=== PATIENT | female | born 1960 | race Caucasian/White ===

== ENCOUNTER 2017-03-15 06:27 | Day surgery (SDC) | payer BC, OTHER ==
[~2017-03-15] VITALS: Ht 162.6 cm; Wt 72.9 kg
--- OUTSIDE RECORDS SUMMARY | 2017-03-15 06:31 | XMS REPORT | Referral Summary ---
Author Author [facility], [facility] Organization [facility] Address Unknown Phone Unavailable Care Team Providers Care Scratcher Name Role Phone Steffany Philip Primary Care Physician [phone] Encounter VC Date(s): 12/06/16 - 12/06/16 [facility], [address] [place] [address]- Discharge Diagnosis: Obesity Discharge Diagnosis: Tubular adenoma of colon Discharge Disposition: 01-Home or Self Care Attending Physician: Vikki Philip DO Admitting Physician: Vikki Philip DO Vital Signs Most recent to 1 oldest [Reference Range]: Temperature Tympanic 37.0 degC [36.6-38.1 degC] (12/06/16 1:59 PM) Peripheral Pulse 95 bpm Rate [60-100 bpm] (12/06/16 1:59 PM) Blood Pressure 122/80 mmHg [90-140/60-90 mmHg] (12/06/16 1:59 PM) SpO2 96 % (12/06/16 1:59 PM) Problem List Condition Effective Dates Status Health Status Informant Concussion(Confirmed 1975 Active ) Obesity(Confirmed) Active patient Psoriasis(Confirmed) Active Sinus Active infections(Confirmed ) Chickenpox(Confirmed Active ) Allergies, Adverse Reactions, Alerts Substance Reaction Severity Status aspirin Unknown Active Medications Vitamin B12 0 Refill(s) Start Date: 12/06/16 Status: Ordered Vitamin D3 1000 intl units oral tablet 1,000 Intl_Units 1 tabs, Oral, Daily, # 30 tabs, 0 Refill(s) Start Date: 12/06/16 Status: Ordered Results No data available for this section Immunizations Given and Recorded Vaccine Date Status Refusal Reason influenza virus vaccine, live 09/13/12 Given Procedures Procedure Date Related Diagnosis Body Site Colonoscopy with polypectomy1 02/21/10 Tonsillectomy 1960 Adenoidectomy 1959 1Polypectomy showing tubular adenoma. Plan repeat colonoscopy in 5 yars (2014) Letter set up. Social History Social History Type Response Smoking Status Former smoker Assessment and Plan Extracted from: Title: Office Visit Note Author: Vikki Philip DO Date: 12/06/16 Assessment/Plan Leg mass Recommend MRI at this time for further evaluation with further recommendations after results. Ordered: Office Visit Level 4 Est 76720 Obesity FLP, CMP for blood sugar screening, and thyroid screening today with further recommendations after results. Ordered: Office Visit Level 4 Est 66183 Tubular adenoma of colon Fast track colonoscopy paperwork was provided to patient today. Ordered: Office Visit Level 4 Est 02791 Recommend patient come back in at her convenience for well woman exam. Extracted from: Title: MRI Author: aLrissa Evans LPN Date: 12/06/16 Pt shceduled for MRI at [facility] Dec 08 at 8:00 with 7:30 check in. Pt notified. Info and order faxed to [facility].
--- OUTSIDE RECORDS SUMMARY | 2017-03-15 06:31 | XMS REPORT | Continuity of Care Document ---
Author Author [facility] Organization [facility] Address Unknown Phone Unavailable Care Team Providers Care Rn Iv Therapy Name Role Phone Vikki Philip Primary Care Physician [phone] Source Comments Some departments are not documenting in the electronic medical record. If you do not see the information that you expected, contact Release of Information in the Health Information Management department at [phone] for further assistance in locating additional records.[facility] Active Allergies and Adverse Reactions Allergen Noted Date Severity Reactions Comments Aspirin 12/18/2016 Medium RASH Current Medications Prescription Sig. Disp. Refills Start End Date Status Date cyanocobalamin(+) Take 100 mcg by mouth Active (VITAMIN B-12) 100 mcg daily. tablet FEXOFENADINE HCL (VICKY Take 1 Tab by mouth as Active PO) Needed. SALICYLIC ACID (ALCOHOL & Apply topically to Active PG) TP affected area. oxyCODONE/acetaminophen Take 1 Tab by mouth every 30 Tab 0 12/19/19 Active (PERCOCET) 5/325 mg 6 hours as needed for 17 tablet Pain cephalexin (KEFLEX) 500 Take 1 Cap by mouth four 8 Cap 0 12/19/19 Active mg capsule times daily. 17 Active Problems Not on file Most Recent Encounters Date Type Specialty Providers Description 03/08/2017 Telephone Orthopedic Surgery Gabriella Nicole MD Follow -up Phone Call 01/09/2017 Telephone Orthopedic Surgery Gabriella Nicole MD New Treatment Follow Up 01/05/2017 Ancillary Radiology Outpatient, Radiologist Diagnosis unknown Orders (Primary Dx) 01/05/2017 Documentation Orthopedic Gabriella Gupta MD 01/01/2017 Hospital Radiology Encounter 12/28/2016 Documentation Orthopedic Gabriella Gupta MD 12/26/2016 Documentation Orthopedic Gabriella Gupta MD 12/25/2016 Telephone Orthopedic Surgery Gabriella Nicole MD Results 12/25/2016 Telephone Orthopedic Surgery Gabriella Nicole MD Results 12/19/2016 Hospital Gabriella Nicole MD Knee mass, left Encounter 12/19/2016 Surgery Gabriella Nicole MD OPEN BIOPSY LEFT THIGH MASS 12/18/2016 Office Visit Orthopedic Surgery Gabriella Nicole MD Mass of left thigh (Primary Dx) 12/18/2016 Anesthesia Arabella Raphael, LILLY Event 12/18/2016 Prep for Case Orthopedic Surgery Gabriella Nicole MD 12/18/2016 Ancillary Radiology Outpatient, Radiologist Diagnosis unknown Orders (Primary Dx) Social History Tobacco Use Types Packs/Day Years Used Date Former Smoker Quit: 11/26/1978 Smokeless Tobacco: Never Used Alcohol Use Drinks/Week oz/Week Comments No Last Filed Vital Signs Vital Sign Reading Time Taken Blood Pressure 128/68 12/19/2016 10:00 AM ORGAN RECOVERY COORDINATOR Pulse 67 12/19/2016 10:00 AM ORGAN RECOVERY COORDINATOR Temperature 36.3 C (97.3 F) 12/19/2016 10:00 AM ORGAN RECOVERY COORDINATOR Respiratory Rate 18 12/18/2016 8:19 AM ORGAN RECOVERY COORDINATOR Height 1.626 m (5' 4") 12/19/2016 6:40 AM ORGAN RECOVERY COORDINATOR Weight 78.7 kg (173 lb 8 oz) 12/19/2016 6:40 AM ORGAN RECOVERY COORDINATOR Body Mass Index 29.77 12/19/2016 6:40 AM ORGAN RECOVERY COORDINATOR Oxygen Saturation 99% 12/19/2016 10:00 AM ORGAN RECOVERY COORDINATOR Plan of Care Health Maintenance Due Date Last Done Comments Hepatitis C Screening 1958 Physical (Comprehensive) 1965 Exam Pertussis Vaccine 1969 Tetanus Vaccine 1975 Cervical Cancer Screening 1979 Breast Cancer Screening 1998 Colorectal Cancer 2008 Screening Influenza Vaccine 07/27/2017 Procedures from Last 3 Months Procedure Name Priority Date/Time Associated Diagnosis Comments TELEMETRY STRIPS-SCAN 12/20/2016 Results for this 12:38 PM ORGAN RECOVERY COORDINATOR procedure are in the results section. OPEN BIOPSY LEFT THIGH 12/19/2016 Knee mass, left MASS 8:00 AM ORGAN RECOVERY COORDINATOR Results from Last 3 Months * PATHOLOGY REPORTS FROM OUTSIDE SCAN (03/14/2017 7:45 AM) Narrative Ordered by an unspecified provider. * PATHOLOGY INTEROPERATIVE REPORT SCAN (01/03/2017 1:51 PM) Narrative Ordered by an unspecified provider. * CYTOGENETICS SCAN (01/02/2017 2:33 PM) Only the most recent of 2 results within the time period is included. Narrative Ordered by an unspecified provider. * CT CHEST EXTERNAL IMAGING (01/01/2017) Narrative This order has been auto finalized and does not contain a result. * TELEMETRY STRIPS-SCAN (12/20/2016 12:38 PM) Narrative Ordered by an unspecified provider. * CHROMOSOMES SOLID TUMOR (12/19/2016 10:00 AM) Component Value Range Chromosomes Solid Tumor SEE PYROTECHNICIAN FOR REPORT * SURGICAL PATHOLOGY (12/19/2016 8:24 AM) Component Value Range PATHOLOGY REPORT [facility] [email or web address] Yolanda Donaldson MD, PhD, Director of Anatomic Pathology Department of Pathology and Laboratory Medicine [address] [place] [id number] Surgical Pathology Office: [phone] SURGICAL PATHOLOGY REPORT NAME: MATILDE RUTH SURG PATH #: [id number] MR #: [id number] SPECIMEN CLASS: SR BILLING #: [id number] ALT ID #: LOCATION: [facility] DATE OF PROCEDURE: 12/19/2016 AGE: 56 SEX: F DATE RECEIVED: 12/19/2016 : 1960 TIME RECEIVED: 08:24 PHYSICIAN: GABRIELLA NICOLE DATE OF REPORT: 12/22/2016 COPY TO: DATE OF PRINTIN12/22/2016 ################################################## ###################### Final Diagnosis: A. Soft tissue, left thigh mass, open biopsy: Undifferentiated pleomorphic sarcoma with myxoid changes, high grade. See comment. Comment: SOFT TISSUE: Biopsy Select a single response unless otherwise indicated. Procedure Open biopsy Tumor Site Left thigh Tumor Size Cannot be determined Macroscopic Extent of Tumor (select all that apply) Deep: Fascial Histologic Type (World Health Organization [WHO] classification ofsoft tissue tumors) Specify: Undifferentiated pleomorphic sarcoma tomorrow S Mitotic Rate Specify: 15/10 high-power irwin (HPF) (1 HPF x 400=0.1734 mm2; X40 objective; most proliferative area) Necrosis Not identified Histologic Grade ([place] [facility] [FNCLCC]) Grade 3 Margins (for excisional biopsy only) Cannot be assessed Lymph-Vascular Invasion Not identified Additional Pathologic Findings Specify: Ancillary Studies (required only if applicable) Immunohistochemistry Specify: the tumor cells are positive for CD34, focally positive for desmin and negative for myers cytokeratin, S-100, Beta-catenin, myers melanoma marker, and SMA. Ki-67 is about 30-40% confirming the high proliferative activity of the tumor Not performed Cytogenetics Specify: submitted Molecular Pathology Not performed Prebiopsy Treatment (select all that apply) No therapy Treatment Effect N/A Pursuant to the [employer] Program at the [facility] Pathology Department, selected slides from this case have been concurrently reviewed by the following pathologist: Dr. Melissa who agrees with the final diagnosis. Attestation: By this signature, I attest that I have personally formulated the final interpretation expressed in this report and that the above diagnosis is based upon my examination of the slides and/or other material indicated in this report. +++Electronically Signed Out By+++ ksw/12/19/2016 Interpreted by: Cherelle Mckenzie MD PhD, Attending Physician 12/22/2016 ################################################## ###################### Material Received: A: left thigh mass History: 56-year-old female with a history of thigh mass. Gross Description: A. Received fresh labeled with the patient's name and "left thigh mass" is a 1.0 x 1.0 x 0.6 cm aggregate of harvey-pink tissue fragments. Sole Blacker sections are submitted in cassette A1FS for frozen and permanent sections. Sole Blacker sections are submitted for cytogenetics. The residual tissue is submitted entirely in cassettes A2 and A3. (brm) ksw/12/19/2016 Intraoperative Consultation: A1FS, lesional tissue, "left thigh mass", biopsy: High-grade sarcoma Cherelle Mckenzie MD PhD, Attending Physician If immunohistochemical stains and/or in situ hybridization are cited in this report, the performance characteristics were determined by the Department of Pathology and Laboratory Medicine of the [facility] ([employer]) in compliance with CLIA'88 regulations. Some of these tests rely on the use of "analyte specific reagents" and are subject to specific labeling requirements by the FDA. Known positive and negative control tissues demonstrate appropriate staining. This testing was developed by the Department of Pathology and Laboratory Medicine of the [facility]. It has not been cleared or approved by the FDA. The FDA has determined that such clearance or approval is not necessary. * CHROMOSOMES FISH DNA PROBE (12/19/2016 8:00 AM) Component Value Range Chromosomes Fish DNA SEE PYROTECHNICIAN FOR REPORT Probe
[2017-03-15 06:37] VITALS: BP 110/64; PULSE 84; RESP 13; TEMP 98.2; O2SAT 96; Ht 162.6 cm; Wt 72.9 kg
[2017-03-15] MEDS ORDERED: PROPOFOL 500mg 50 ML IV ONE ×2 (06:51→07:15)
[2017-03-15] MEDS ORDERED: LR 1,000 ML IV SCH (07:00)
[2017-03-15] MEDS ORDERED: LIDOCAINE 1% (10mg/ml) 2ml SDV INJ ONE (07:00)
[2017-03-15] MEDS ORDERED: LIDOCAINE (2%) 100 MG/5 ML PF SYRINGE IV ONE (07:15)
--- NOTE | 2017-03-15 07:33 | ANESPREOP ---
Anesthesia Record Date and Time DATE: 03/15/17 TIME: 07:32 Pre-Op Diagnosis personal history Proposed Surgical Procedure COLONOSCOPY NPO since: 2199 Allergies: Coded Allergies: aspirin (Verified Allergy, Unknown, 03/15/17) Ht/Wt/BMI Height: 5 ' 4.00 " Weight: 72.900 kg BMI: 27.6 kg/m2 Vital Signs Date Time Temp Pulse Resp B/P Pulse Ox O2 Delivery O2 Flow Rate FiO2 03/15/17 06:37 98.2 84 13 110/64 96 Room Air Medications Inpatient Medications Current Medications Medications (Trade) Dose Ordered Sig/Mayco Start Time Stop Time Status Last Admin Dose Admin Lactated Ringer's (Lactated Ringers) 1,000 ml @ 30 mls/hr Q24H 03/15/17 07:00 03/15/17 06:56 30 MLS/HR No Active Prescriptions or Reported Meds Currently on Beta Chago: No Medical/Surgical History Anesthesia PMH: Reports: Anesthesia Reactions (NO AIRWAY ISSUES), Cancer (LEG- SARCOMA), Denies: *Diabetes, Arthritis, Clotting Problems, Glaucoma, Malignant Hyperthermia, Sleep Apnea, Thyroid Disease Smoking Status: Never smoker Has pt. smoked today?: No Use Chewing Tobacco?: No Second Hand Exposure: No Substance Use Type: does not use Alcohol Intake: none HX of Last Menstrual Period: AGE 43 Past Surgical History Orthopedic Surgeries: Abdominal Surgeries: Genitourinary Surgeries: Cardiac Surgeries: Endocrine Surgeries: Reproductive Surgeries: Neurological Surgeries: Ear Surgeries: Nose Surgeries: Throat Surgeries: Yes - TONSILLECTOMY 1960 Other Surgeries: Yes - COLONOSCOPY Anesthesia Adverse Reactions: FOUND none Pertinent Findings EKG Rhythm: Sinus Rhythm Physical Exam Respiratory: Lungs clear Cardiovascular: FOUND Regular rate, rhythm, FOUND No murmur Airway Assessment Mallampati Score: I TMD: 3 Fingerbreadths Neck Extension: Good Teeth: Chipped Teeth/Crowns ASA: 2 Plan Anesthesia Plan: TIVA Discussion Discussed risks/options/alternatives of anesthesia and questions answered. Patient consents. Nursing pain assessment noted. Attestation Statement Prior to the delivery of any anesthetic medication, I examined the patient, developed the plan, obtained the patient's consent and discussed the risk and benefits of the procedure with the patient/guardian. MACHO RUTLEDGE CRNA Mar 15, 2017 07:33
[2017-03-15 08:53] VITALS: BP 102/59; PULSE 72; RESP 16; TEMP 97.5; O2SAT 100
[2017-03-15 09:08] VITALS: BP 106/63; PULSE 72; RESP 16; TEMP 97.5; O2SAT 95
--- NOTE | 2017-03-15 09:11 | ANESPO ---
Post-Op Note Date 03/15/17 Time: 09:11 Status Pt Participated in Evaluation: Pt participated in person Vital Signs Date Time Temp Pulse Resp B/P Pulse Ox O2 Delivery O2 Flow Rate FiO2 03/15/17 09:08 97.5 72 16 106/63 95 Room Air 03/15/17 08:53 6.00 Respiratory Function: Airway patent, Regular respirations Cardiovascular Function: Regular pulse Mental Status: Alert/oriented Pain Level Intensity: 0 Hydration: Taking po fluids Complications during Recovery None apparent Follow-Up Instructions Instructions Per Surgeon ZAIDA SWAN CRNA Mar 15, 2017 09:11
[2017-03-15 09:23] VITALS: BP 103/60; PULSE 60; RESP 16; O2SAT 98
--- NOTE | 2017-03-15 11:50 | OPNOTEF ---
DATE OF PROCEDURE 03/15/2017 SURGEON Slava Abarca MD PREOPERATIVE DIAGNOSIS Personal history of adenomatous colon polyps. POSTOPERATIVE DIAGNOSIS Personal history of adenomatous colon polyps, normal colonoscopy. PROCEDURE Colonoscopy. ANESTHESIA TIVA. BRIEF HISTORY/INDICATIONS Mrs. George is a 56-year-old female who about six years ago underwent a colonoscopy and was found to have an adenomatous colon polyp at that time. The patient presents today to undergo a followup colonoscopy. For completeness, please refer to notes included in the patient's chart. FINDINGS Upon colonoscopy, there was no evidence for angiodysplastic lesions, polyps, diverticula or sophia malignancies. DESCRIPTION OF PROCEDURE After informed consent was obtained, the patient was brought to the endoscopy suite and placed on the table in left lateral decubitus position. The patient subsequently underwent total intravenous anesthesia by the nurse cutter operator asbestos shingle per my request. A formal timeout was then performed. Next, a digital rectal examination was performed. Normal sphincter tone. No rectal masses were appreciated. An Olympus colonoscope was inserted in the anus and advanced with the lumen of the colon under direct visualization at all times until the cecum was ascertained. Triangulation of the taenia coli, ileocecal valve and appendiceal lumen were all visualized. The scope was then slowly withdrawn, again while maintaining visualization of the lumen at all times. As stated above, the entire colon was without evidence for angiodysplastic lesions, polyps, diverticula or sophia malignancies. The scope continued to be withdrawn until it was brought forth back into the rectal vault. A J-maneuver was then performed. No worrisome perianal pathology was noted. The scope was allowed to straighten and was withdrawn through the anal verge. The patient tolerated the procedure without difficulty and was sent back to the preop area in stable condition. Secondary to the absence of findings upon this colonoscopy and the fact the patient does have a prior history for adenomatous colon polyps, I would still recommend that she undergo a repeat colonoscopy at about a five-year interval. If she can demonstrate that she has not formed an adenomatous colon polyp over a 10-year period of time, will then return the patient back to the general guidelines at that time. ANTOINE
== END 2017-03-15 09:27 | disposition home or self-care (01) ==
LOC: SCU 06:27
PROVIDERS: ATTEND Surgery
DX: Z12.11 Encounter for screening for malignant neoplasm of colon (principal); Z86.010 Personal history of colon polyps; E66.9 Obesity, unspecified; Z68.27 Body mass index [BMI] 27.0-27.9, adult; Z79.899 Other long term (current) drug therapy
CPT/HCPCS: 45378; J2704; J7120

== ENCOUNTER 2017-04-02 05:57 | Day surgery (SDC) | payer BC, OTHER ==
[~2017-04-02] VITALS: Ht 160 cm; Wt 72.4 kg
[~2017-04-02 05:57] MED LIST: ACET-2723 PO; CHOL100018 PO; CYAN250010 PO; FEXO180T94 PO; NAPR220T61 PO
--- OUTSIDE RECORDS SUMMARY | 2017-04-02 06:01 | XMS REPORT | Continuity of Care Document ---
Author Author [facility] Organization [facility] Address Unknown Phone Unavailable Support Name Relationship Address Phone KAYLEE KAUR FACS, MD Caregiver [address] [place] [address] [place] [address] Unavailable GAVIN PETERS DO Caregiver Unknown Unavailable PELON RUTH Next Of Kin [address] [place] [address] Insurance Providers Guarantor Matilde Ruth Address [address] [place] [address] CP Email [facility] Policy Number [id number] Subscriber's Name Matilde Ruth Relationship 18 Self Group Number [id number] Effective Date 14 [facility] Policy Number [id number] Subscriber's Name ArielPelon Barber Relationship 01 Spouse Group Number [id number] Effective Date 14 Advance Directives Directive Response Recorded Date/Time Dr Esquivel Resuscitation Status Full Code 03/14/17 12:20pm Resuscitation Documents on File No 03/15/17 6:46am DPOA for Healthcare Only No 03/15/17 6:46am Living Will No 03/15/17 6:46am Problems No problem information available. Medications No known medications. Social History Social History Problem Response Recorded Date/Time Onset Date Status Reason for Hospitalization colonoscopy 03/15/2017 9:07am Not Applicable Not Applicable Chewing Tobacco Status No 03/15/2017 6:50am Not Applicable Not Applicable Hx Substance Use No 03/14/2017 9:58am Not Applicable Not Applicable Hx Alcohol Use Y SOCIALLY 03/15/2017 6:50am Not Applicable Not Applicable Has the pt used tobacco in the last 12 months No 03/15/2017 6:50am Not Applicable Not Applicable Query Response Start Date Stop Date Smoking Status Never smoker Hospital Discharge Instructions Instructions: Care Instructions: I was in the hospital because (patient own words): COLONOSCOPY Discharge Diet: As Tolerated Discharge Activity: Do NOT drive today Follow Up Appointments: Follow up with Dr. Kaur as needed. Pending Lab / Results: No Pending Lab Patient Instructions: If biopsies performed during endoscopy, results/recommendations will be mailed in about 2-3 weeks. Expected Signs/Symptoms: None Notify Physician If: Call physician if temperature is GREATER than 101.5, severe abdominal pain or severe rectal bleeding. During Business Hours:: Call [phone] After Business Hours:: Call [phone] ([facility]) Pain Management/Treatment: Call Dr. Kaur if increasing abdominal pain Wound/Incision Care: N/A Condition at time of discharge: Good Plan of Care Discharge Date 03/15/17 9:27am Prescriptions See Medication Section Functional Status Query Response Date Recorded Ability to complete ADL's impeded by No change March 15, 2017 6:46am Allergies, Adverse Reactions, Alerts Allergen Type Severity Reaction Status Last Updated Aspirin Allergy Unknown Active 03/15/17 Immunizations Query Response on File Recorded Date/Time Hx Influenza Vaccination Y AUG 2016 03/15/17 6:50am Hx Pneumococcal Vaccination No 03/15/17 6:50am Hx Influenza Vaccination Y AUG 2016 03/15/17 6:50am Vital Signs Acute Vital Signs Vital Response Date/Time Temperature (Fahrenheit) 97.5 deg F (96.8 - 99.1) 03/15/2017 9:08am Temperature (Calculated Celsius) 36.45540 degrees C (36.0 - 37.3) 03/15/2017 9:08am Temperature Source Oral 03/15/2017 9:08am Pulse Rate (adult) 60 bpm (60 - 100) 03/15/2017 9:23am Respiratory Rate 16 breaths/min (10 - 20) 03/15/2017 9:23am O2 Sat by Pulse Oximetry 98 % (90 - 100) 03/15/2017 9:23am Oxygen Delivery Method Room Air 03/15/2017 9:23am Oxygen Flow Rate 6.00 L/min 03/15/2017 8:53am Blood Pressure 103/60 mm Hg 03/15/2017 9:23am Blood Pressure Source Automatic Cuff 03/15/2017 9:23am Height (Feet) 5 feet 03/15/2017 6:37am Height (Inches) 4.00 inches 03/15/2017 6:37am Weight (Kilograms) 72.900 kg 03/15/2017 6:37am Body Mass Index (BMI) 27.6 03/15/2017 6:37am Results No known relevant diagnostic tests, laboratory data and/or discharge summary. Procedures Procedure Status Date Provider(s) Ct thorax w/dye Completed 01/01/17"INFUSION, NORMAL SALINE SOLUTION , 250 CC" Completed 01/01/17"LOW OSMOLAR CONTRAST MATERIAL, 300-399 MG/ML IODINE C Completed Bone imaging whole body Completed 01/11/17"TECHNETIUM TC-99M MEDRONATE, DIAGNOSTIC, PER STUDY DO Completed Colonoscopy Completed 03/15/17 KAYLEE KAUR MD, FACS, CWS Encounters Encounter Location Arrival/Admit Date Discharge/Depart Date Attending Provider Departed [facility] Day [facility] 03/15/17 6:27am 03/15/17 9: 27am KAYLEE KAUR FACS CWS MD Registered Clinic [facility] 01/11/17 7:28am ESTEPHANIA AUSTIN MD Registered [facility] 01/01/17 2:54pm GABRIELLA NICOLE
--- OUTSIDE RECORDS SUMMARY | 2017-04-02 06:01 | XMS REPORT | Continuity of Care Document ---
Author Author [facility] Organization [facility] Address Unknown Phone Unavailable Care Team Providers Care Predatory Game Hunter Name Role Phone Vikki Philip Primary Care Physician [phone] Source Comments Some departments are not documenting in the electronic medical record. If you do not see the information that you expected, contact Release of Information in the Health Information Management department at [phone] for further assistance in locating additional records.[facility] Active Allergies and Adverse Reactions Allergen [...] Specialty Providers Description 03/08/2017 Telephone Orthopedic Surgery Melissa Bedoya MD Follow -up Phone Call 01/09/2017 Telephone Orthopedic Surgery Melissa Bedoya MD New Treatment Follow Up 01/05/2017 Ancillary Radiology Outpatient, Radiologist Diagnosis unknown Orders (Primary Dx) 01/05/2017 Documentation Orthopedic Surgery Melissa Bedoya MD Social History Tobacco Use Types Packs/Day Years Used Date Former Smoker Quit: 11/26/1978 Smokeless Tobacco: Never Used Alcohol Use Drinks/Week oz/Week Comments No Last Filed Vital Signs Vital Sign Reading Time Taken Blood Pressure 128/68 12/19/2016 10:00 AM MATERIAL CARRIER Pulse 67 12/19/2016 10:00 AM MATERIAL CARRIER Temperature 36.3 C (97.3 F) 12/19/2016 10:00 AM MATERIAL CARRIER Respiratory Rate 18 12/18/2016 8:19 AM MATERIAL CARRIER Height 1.626 m (5' 4") 12/19/2016 6:40 AM MATERIAL CARRIER Weight 78.7 kg (173 lb 8 oz) 12/19/2016 6:40 AM MATERIAL CARRIER Body Mass Index 29.77 12/19/2016 6:40 AM MATERIAL CARRIER Oxygen Saturation 99% 12/19/2016 10:00 AM MATERIAL CARRIER Plan of Care Health Maintenance Due Date Last Done Comments Hepatitis C Screening 1958 Physical (Comprehensive) 1965 Exam Pertussis Vaccine 1969 Tetanus Vaccine 1975 Cervical Cancer Screening 1979 Breast Cancer Screening 1998 Colorectal Cancer 2008 Screening Influenza Vaccine 07/27/2017 Results from Last 3 Months * PATHOLOGY REPORTS FROM OUTSIDE SCAN (03/14/2017 7:45 AM) Narrative Ordered by an unspecified provider. * PATHOLOGY INTEROPERATIVE REPORT SCAN (01/03/2017 1:51 PM) Narrative Ordered by an unspecified provider.
[2017-04-02 06:13] VITALS: BP 121/75; PULSE 72; RESP 14; TEMP 98.5; O2SAT 96; Ht 160 cm; Wt 72.4 kg
[2017-04-02 06:32] LABS: BASOPHILS % (AUTO) 0.2 % (0-2); EOSINOPHILS # (AUTO) 0.2 T/MM3 (0-0.5); EOSINOPHILS % (AUTO) 2.4 % (0-4); HCT - HEMATOCRIT 42.3 % (36-46); LYMPHOCYTES # (AUTO) 1.9 T/MM3 (1-4.8); LYMPHOCYTES % (AUTO) 29.6 % (23-45); MEAN CORPUSCULAR HGB 31.1 UUG (26-34); MEAN CORPUSCULAR HGB CONC(MCHC 33.1 GM/DL (31-37); MEAN PLATELET VOLUME 10.2 UM3 (9.4-12.4); MONOCYTES # (AUTO) 0.4 T/MM3 (0-0.8); MONOCYTES % (AUTO) 5.6 % (0-9.0); NEUTROPHILS % (AUTO) 62.2 % (33-66); WBC - WHITE BLOOD COUNT 6.4 T/MM3 (4.5-11.0)
[2017-04-02] MEDS ORDERED: LIDOCAINE 1% (10mg/ml) 2ml SDV INJ ONE (07:00)
[2017-04-02] MEDS ORDERED: CEFAZOLIN 1 GRAM INJECTION IV ONE (07:00)
[2017-04-02] MEDS ORDERED: LR 1,000 ML IV SCH (07:00)
--- NOTE | 2017-04-02 07:20 | ANESPREOP ---
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 Proposed Surgical Procedure INSERTION OF POWER PORT Allergies: Coded Allergies: aspirin (Verified Allergy, Unknown, 04/02/17) Ht/Wt/BMI Height: 5 ' 3.00 " Weight: 72.400 kg BMI: 28.3 kg/m2 Vital Signs Date Time Temp Pulse Resp B/P Pulse Ox O2 Delivery O2 Flow Rate FiO2 04/02/17 06:13 98.5 72 14 121/75 96 Room Air Medications Inpatient Medications Current Medications Medications (Trade) Dose Ordered Sig/Mayco Start Time Stop Time Status Last Admin Dose Admin Lactated Ringer's (Lactated Ringers) 1,000 ml @ 50 mls/hr Q20H 04/02/17 07:00 04/02/17 06:36 50 MLS/HR Acetaminophen (Tylenol Extra Strength) 500 Mg Tablet, 1-2 TAB PO Q6H PRN for PAIN/FEVER, (Reported) Last Taken: on Unknown Date & Time Cholecalciferol (Vitamin D3) 1,000 Unit Tablet, 1 TAB PO DAILY, (Reported) Last Taken: on Unknown Date & Time Cyanocobalamin (Vitamin B-12) (Vitamin B12) 2,500 Mcg Tablet, 1 TAB PO DAILY, (Reported) Last Taken: on 04/01/17 1200 Fexofenadine HCl (Prachi Allergy) 180 Mg Tablet , 1 TAB PO DAILY, (Reported) Do not drink Apple, Phelps, or Grapefruit juice within 4 hours of this medication, causes decreased absorption Last Taken: on 03/31/17 Naproxen Sodium (Aleve) 220 Mg Tablet, 220 MG PO WB, (Reported) Take 1 tablet, by mouth, daily with breakfast. Last Taken: on 03/28/17 Currently on Beta Chago: No Medical/Surgical History Anesthesia PMH: Reports: Anesthesia Reactions (NO AIRWAY ISSUES), Cancer (LEG- myxofibrosarcoma), Denies: *Diabetes, Arthritis, Clotting Problems, Glaucoma, Malignant Hyperthermia, Sleep Apnea, Thyroid Disease Smoking Status: Former smoker Has pt. smoked today?: No Use Chewing Tobacco?: No Second Hand Exposure: No Substance Use Type: does not use Alcohol Intake: a few times a week Last Drink: unknown Past Surgical History Orthopedic Surgeries: Abdominal Surgeries: Genitourinary Surgeries: Cardiac Surgeries: Endocrine Surgeries: Reproductive Surgeries: Neurological Surgeries: Ear Surgeries: Nose Surgeries: Throat Surgeries: Yes - TONSILLECTOMY 1960=per past admit Other Surgeries: Yes - COLONOSCOPY-per past admit Anesthesia Adverse Reactions: FOUND none Pertinent Findings Laboratory Tests 04/02/17 06:24 EKG Rhythm: Sinus Rhythm Physical Exam Respiratory: Bilat breath sounds equal, Lungs clear Cardiovascular: FOUND Regular rate, rhythm, FOUND No murmur Airway Assessment Mallampati Score: II TMD: 3 Fingerbreadths Neck Extension: Good Overall Assessment: No Airway Concerns ASA: 2 Plan Anesthesia Plan: TIVA Discussion Discussed risks/options/alternatives of anesthesia and questions answered. Patient consents. Nursing pain assessment noted. Present: Spouse Attestation Statement Prior to the delivery of any anesthetic medication, I examined the patient, developed the plan, obtained the patient's consent and discussed the risk and benefits of the procedure with the patient/guardian. BEV DE SANTIAGO CRNA April 02, 2017 07:20
[2017-04-02] MEDS ORDERED: HYDR-4246 PO (07:42)
[2017-04-02 08:30] VITALS: BP 110/56; PULSE 82; RESP 14; TEMP 97.7; O2SAT 96
--- NOTE | 2017-04-02 08:38 | ANESPO ---
Post-Op Note Date 04/02/17 Time: 08:37 Status Pt Participated in Evaluation: Pt participated in person Vital Signs Date Time Temp Pulse Resp B/P Pulse Ox O2 Delivery O2 Flow Rate FiO2 04/02/17 08:30 97.7 82 14 110/56 96 Room Air Respiratory Function: Airway patent, Regular respirations Cardiovascular Function: Regular pulse Mental Status: Alert/oriented Pain Level Intensity: 0 Hydration: Taking po fluids, IV infusing Complications during Recovery None apparent Post-Anesthesia Notes pt. elie. well Follow-Up Instructions Instructions Per Surgeon Additional Information none BEV DE SANTIAGO CRNA April 02, 2017 08:38
[2017-04-02 08:45] VITALS: BP 114/63; PULSE 81; RESP 16; O2SAT 96
--- NOTE | 2017-04-02 08:50 | DI ---
Indication: ITS.REASON: POST OP PORT INSERTION PROCEDURE: PORTACATH W FLUORO W 1V CXR: Encounter: Initial Comparison: None Findings: The included portions of the lungs are clear. Heart size normal. No pleural effusion. No pneumothorax. There is a right IJ port in place with its tip overlying the mid to lower SVC. No pleural effusion. There is moderate overlying EKG lead artifact. Impression: Right IJ port in place with tip in good position. No pneumothorax or pleural effusion. No acute cardiopulmonary process. .
[2017-04-02 09:06] VITALS: BP 110/63; PULSE 81; RESP 16; O2SAT 97
[2017-04-02 09:20] VITALS: BP 113/53; PULSE 76; RESP 18; O2SAT 98
[2017-04-02 09:32] VITALS: BP 115/55; PULSE 75; RESP 18; O2SAT 97
--- NOTE | 2017-04-02 09:36 | OPNOTEF ---
DATE OF SERVICE 04/02/2017 SURGEON Slava Abarca MD PREOPERATIVE DIAGNOSIS Personal history for soft tissue sarcoma involving left thigh, need for long-term central venous access to facilitate neoadjuvant chemotherapy. POSTOPERATIVE DIAGNOSIS Personal history for soft tissue sarcoma involving left thigh, need for long-term central venous access to facilitate neoadjuvant chemotherapy. PROCEDURE Insertion of PowerPort catheter. ANESTHESIA TIVA BRIEF HISTORY/INDICATIONS Mrs. George is a 56-year-old female who has had the misfortune of developing a sarcoma involving her left medial thigh. It has been recommended to the patient that she undergo preoperative chemo/radiation. Patient presents today to undergo placement of a PowerPort catheter to facilitate her upcoming neoadjuvant chemotherapy. For completeness please refer to notes included in the patient's chart. DESCRIPTION OF OPERATION After informed consent was obtained, the patient was brought to the operative suite, placed on the table in supine fashion. The right lateral neck and anterior chest were then prepped and draped in a sterile fashion. First, the patient was placed in Trendelenburg position and ultrasonography was performed along the right lateral neck. One could see a round hypoechoic structure which collapsed with pressure applied via the ultrasound transducer. This corresponded with the internal jugular vein. 0.25% Marcaine with epinephrine was injected overlying the anatomic location of the internal jugular vein. A Cook needle was then introduced through the area of analgesia and into the underlying internal jugular vein under sonographic guidance. A guidewire was advanced through the Cook needle and the Cook needle was then removed. Fluoroscopy was then performed which revealed the guidewire to be within the atrium and right ventricle. A 5-6 mm incision was then made adjacent to the exit site of the guidewire and extended out laterally. Additional 0.25% Marcaine with epinephrine was injected about two fingerbreadths below the right clavicle. A 3 cm incision was then made through the area of analgesia. A subcutaneous pocket was then created just inferior or caudad to this incision. A PowerPort reservoir was then brought forth into the operative field and placed within the subcutaneous pocket and subsequently imbricated to the underlying pectoralis fascia in a triangulated fashion by placing three simple interrupted sutures of 0-Prolene through the underlying pectoralis fascia and subsequently through the holes within the reservoir itself. The catheter was then tunneled between the two incisions. A dilator and tear-away sheath were then advanced over the guidewire. The guidewire and dilator were then removed. The catheter was then quickly advanced in the tear-away sheath and the tear-away sheath was then removed. Under fluoroscopy, the tip of the catheter was then placed near the junction between the superior vena cava and right atrium and cut to the appropriate length and subsequently attached to the PowerPort reservoir. The PowerPort reservoir was then accessed and was easily aspirated and flushed with heparinized saline. Both skin incisions were then closed in a subcuticular fashion with 4-0 Monocryl. The patient tolerated the procedure without difficulty. A post procedure chest x-ray will be obtained postoperatively. The results of this film are pending at the time of dictation. [facility]OSPITALVivian
== END 2017-04-02 09:41 | disposition home or self-care (01) ==
LOC: SCU 05:57
PROVIDERS: ATTEND Surgery
DX: C49.22 Malignant neoplasm of connective and soft tissue of left lower limb, including hip (principal)
CPT/HCPCS: 36415; 36561; 77001; 85025; C1788; J0690; J7120